=== PATIENT | female | born 1970 | race Caucasian/White ===

== ENCOUNTER 2019-11-16 14:20 | Observation (INO) ==
[2019-11-16] MEDS ORDERED: SODIUM CHLORIDE 0.9% 1,000 ML IV STA (15:12)
[2019-11-16 15:45] LABS: Basophils % 0.6 % (0.0-0.8); Eosinophils # 0.2 10*3/uL (0.0-0.87); Eosinophils % 2.6 % (0.00-10.9); Hematocrit 42.9 VOL% (35.7-47.0); Immature Granulocytes % 0.2 %; Immature Granulocytes Absolute 0.01 #; Lymphocytes # 1.1 10*3/uL (1.4-4.0); Mean Corpuscular HGB Conc 32.6 GM/DL (32-36); Mean Corpuscular Volume 93.7 FL (87-102); Mean Platelet Volume 10.5 FL (9.6-12.0); Monocytes % 7.6 % (1.7-12.7); Platelet Count 141 T/CUMM (130-400); Red Blood Count 4.58 MC/CUMM (3.8-5.5); Red Cell Distribution Width 13.3 % (9.3-17.3); White Blood Count 6.6 T/CUMM (4-12)
[2019-11-16 16:02] LABS: Apearance,Urine CLEAR (Clear); Bilirubin,Urine Negative (Negative); Blood, Urine Negative (Negative); Glucose,Urine (UA) 50 mg/dL (Negative); Ketones,Urine Negative (Negative); Nitrite,Urine Negative (Negative); Protein,Urine Negative; RBC,Urine 1 /HPF (0-4); Squamous Epithelial Cell,Urine Occasional /HPF (0-10); Urine Color Colorless (Yellow); Urine Specific Gravity 1.001 (1.001-1.035); Urine Urobilinogen < 2.0 EU/DL (0.2-1.0); WBC,Urine <1 /HPF (0-6)
[2019-11-16 16:06] LABS: Alanine Aminotransferase 61 U/L (13-56); Albumin 3.8 G/DL (3.4-5.0); Alkaline Phosphatase 69 U/L (45-117); Aspartate Amino Transferase 38 U/L (0-37); Blood Urea Nitrogen 11 MG/DL (7-18); Calcium 8.7 MG/DL (8.5-10.1); Estimated Glom Filtration Rate 72 ML/MIN; Glucose 85 MG/DL (74-106); Osmolality,Calculated 270.8 MOS/KG (273-304); Total Protein 7.4 G/DL (6.4-8.3)
[2019-11-16 16:08] LABS: Barbiturates Screen,Urine Negative (Negative); Benzodiazepines Screen,Urine Positive (Negative); Cannabinoid Screen,Urine Negative (Negative); Opiate Screen,Urine Negative (Negative); Phencyclidine Screen,Urine Negative (Negative)
[2019-11-16 16:11] LABS: Acetaminophen < 2.0 UG/ML (10-30); Salicylate < 2.8 MG/DL (2.8-20)
[2019-11-16 16:52] LABS: Anisocytosis Slight; Eosinophils 3 % (0-10); Lymphocytes 14 % (20-55); Segmented Neutrophils 79 % (50-85); Total Cells Counted 100
[2019-11-16 16:53] LABS: Platelet Estimate Normal; Poikilocytosis Slight
[2019-11-16] MEDS ORDERED: DOCUSATE SODIUM 100 MG CAPSULE PO PRN (21:37)
[2019-11-16] MEDS ORDERED: ACETAMINOPHEN 325 MG TABLET PO PRN (21:37)
[2019-11-16] MEDS ORDERED: ONDANSETRON 4 MG/2 ML VIAL IV PRN (21:37)
[2019-11-16] MEDS ORDERED: CLORAZEPATE 7.5 MG TABLET PO PRN (21:43)
[2019-11-16] MEDS: GABAPENTIN 300 MG CAPSULE PO SCH (23:09)
[2019-11-17 05:02] LABS: Basophils % 0.5 % (0.0-0.8); Eosinophils # 0.3 10*3/uL (0.0-0.87); Eosinophils % 4.8 % (0.00-10.9); Hematocrit 35.5 VOL% (35.7-47.0); Hemoglobin 11.7 GM/DL (12.0-16.0); Immature Granulocytes % 0.2 %; Immature Granulocytes Absolute 0.01 #; Lymphocytes # 2.3 10*3/uL (1.4-4.0); Lymphocytes % 35.8 % (21.3-54.2); Mean Corpuscular Volume 92.7 FL (87-102); Mean Platelet Volume 10.9 FL (9.6-12.0); Monocytes % 7.1 % (1.7-12.7); Neutrophils % 51.6 % (38.7-73.9); Platelet Count 198 T/CUMM (130-400); Red Blood Count 3.83 MC/CUMM (3.8-5.5); Red Cell Distribution Width 13.5 % (9.3-17.3); White Blood Count 6.5 T/CUMM (4-12)
[2019-11-17 05:48] LABS: Calcium 8.4 MG/DL (8.5-10.1); Osmolality,Calculated 272.7 MOS/KG (273-304); Thyroid Stimulating Hormone 2.69 uIU/ml (0.358-3.74)
[2019-11-17] MEDS: GABAPENTIN 300 MG CAPSULE PO SCH ×3 (08:29→21:09)
[2019-11-17] MEDS ORDERED: CYANOCOBALAMIN 1000 MCG/1 ML VIAL IM SCH (09:00)
[2019-11-18] MEDS: GABAPENTIN 300 MG CAPSULE PO SCH ×2 (08:24→14:54)
[2019-11-18] MEDS ORDERED: ESCITALOPRAM 10 MG TABLET PO SCH (11:30)
[2019-11-18 12:57] VITALS: BP 129/75
== END 2019-11-18 15:13 | disposition home or self-care (01) ==
LOC: EDUNIT# → EDBD → N.ED 14:20 → N.EDINP 14:20 → SUATTDRO 21:32 → N.CC 22:47
PROVIDERS: ADMIT Family Medicine; ATTEND Family Medicine